=== PATIENT | female | born 1945 | race Hispanic/Latino ===

== ENCOUNTER 2020-02-23 | Emergency (ER) | payer OTHER, MEDICARE | END 2020-02-23 15:13 | disposition home or self-care (01) | DX: H81.10 Benign paroxysmal vertigo, unspecified ear (principal); E87.6 Hypokalemia; E86.0 Dehydration; R11.2 Nausea with vomiting, unspecified; I10 Essential (primary) hypertension; Z79.899 Other long term (current) drug therapy ==